=== PATIENT | female | born 1985 | race Caucasian/White ===

== ENCOUNTER 2018-08-12 02:31 | Emergency (ER) | payer BC ==
[~2018-08-12] VITALS: Ht 162.6 cm; Wt 125.0 kg
[2018-08-12 02:38] VITALS: TEMP 97.3
[2018-08-12 03:00] LABS: BASO # 0.1 (0.0-0.2); BASO % 0.5 % (0.0-2.0); EOS # 0.3 (0.0-0.7); EOS % 2.3 % (0-4.0); GRAN # 6.9 (1.4-6.5); GRAN % 62.8 % (42.2-75.2); HEMOGLOBIN 11.6 g/dl (12.5-16.0); LYMPH % 27.2 % (20.0-51.0); MEAN CELL VOLUME 74 fl (80.0-100.0); MEAN CORPUSCULAR HEMOGLOBIN 24 pg (27.0-31.0); MEAN CORPUSCULAR HGB CONC 32 g/dl (33.0-37.0); MEAN PLATELET VOLUME 9.2 fl (7.4-10.4); MONO # 0.7 (0.1-0.6); MONO % 6.6 % (1.7-9.3); PLATELET COUNT 439 K/mm3 (130-400); RED BLOOD COUNT 4.94 M/mm3 (4.10-5.30); REDCELL DISTRIBUTION WIDTH-CV 16.2 % (11.5-14.5)
[2018-08-12 03:12] LABS: ALBUMIN 3.9 gm/dL (3.5-5.0); BILIRUBIN,TOTAL 0.3 mg/dL (0.0-1.0); C-REACTIVE PROTEIN 4.2 mg/dL (0.0-0.9); CALCIUM 8.8 mg/dL (8.4-10.2); CREATININE, serum 0.65 mg/dL (0.52-1.25); TOTAL PROTEIN 7.6 gm/dL (6.4-8.2)
[2018-08-12] MEDS ORDERED: ZYRTEC 10MG10 MG PO (03:28)
[2018-08-12] MEDS ORDERED: ZOLOFT 50MG50 MG PO (03:28)
[2018-08-12] MEDS ORDERED: WOMEN'S DAILY1 TAB PO (03:29)
[2018-08-12 03:32] LABS: HEMATOCRIT 36.7 % (37.0-47.0)
[2018-08-12 03:46] LABS: COLLECTION METHOD CLEAN CATCH
[2018-08-12 03:52] LABS: MUCOUS Present /lpf; PH 5 (5-8); SQUAMOUS EPITHELIAL None Seen /hpf; URINE APPEARANCE Clear; URINE BACTERIA None Seen /hpf; URINE BILIRUBIN Negative (NEGATIVE); URINE BLOOD 1+ (NEGATIVE); URINE COLOR Straw; URINE GLUCOSE Negative (NEGATIVE); URINE KETONE Negative (NEGATIVE); URINE LEUKOCYTE ESTERASE Negative (NEGATIVE); URINE NITRATE Negative (NEGATIVE); URINE PROTEIN(semi-quant) Negative (NEGATIVE); URINE RBC None Seen /hpf; URINE UROBILINOGEN Negative (NEGATIVE)
[2018-08-12] MEDS ORDERED: LEVAQUIN 750MG750 M1 PO (06:37)
[2018-08-12 06:52] VITALS: BP 128/77; PULSE 75
== END 2018-08-12 06:53 | disposition home or self-care (01) ==
LOC: COL.ER 02:31
PROVIDERS: Emergency Medicine
DX: R91.8 Other nonspecific abnormal finding of lung field (principal); R10.9 Unspecified abdominal pain; Z90.89 Acquired absence of other organs
CPT/HCPCS: J1885; J7030; Q9967